=== PATIENT | female | born 2000 | race Caucasian/White ===

== ENCOUNTER 2024-07-30 14:24 | Outpatient (RCR) | payer MEDICAID, SELFPAY | END 2024-08-03 23:59 | disposition home or self-care (01) | LOC: SCTC 14:24 | PROVIDERS: PCP Nurse Practitioner Family; Referring Provider Nurse Practitioner Family; Visit Provider Nurse Practitioner Family | DX: D72.829 Elevated white blood cell count, unspecified (principal); E66.9 Obesity, unspecified; Z68.41 Body mass index [BMI] 40.0-44.9, adult | CPT/HCPCS: 99212; G0463 ==

== ENCOUNTER 2024-09-11 07:25 | Outpatient (CLI) | payer MEDICAID, SELFPAY ==
[2024-08-22 10:21] VITALS: BMI 39.8
[2024-09-10 15:43] LABS: Basophils # (Auto) 0.1 Thou/mm3 (0.0-0.2); Basophils % (Auto) 0 % (0-2.5); Eosinophils # (Auto) 0.1 Thou/mm3 (0.0-0.5); Eosinophils % (Auto) 1 % (0-10); Hematocrit 40.9 % (36.0-46.0); Hemoglobin 13.3 g/dL (12.0-16.0); Immature Granulocytes % (Auto) 1 % (0-0); Immature Granulocytes Auto 0.09 Thou/mm3 (0.00-0.00); Lymphocytes # (Auto) 3.3 Thou/mm3 (1.0-4.8); Lymphocytes % (Auto) 21 % (10-50); Mean Corpuscular HGB Conc 32.5 g/dl (31.0-37.0); Mean Corpuscular Hemoglobin 28.6 pg (25.0-35.0); Mean Corpuscular Volume 88 fL (80-100); Monocytes # (Auto) 0.8 Thou/mm3 (0.0-0.8); Monocytes % (Auto) 5 % (0-12); Neutrophils # (Auto) 11.4 Thou/mm3 (1.8-7.7); Neutrophils % (Auto) 73 % (37-80); Nucleated Red Blood Cell % 0 /100 WBC (0); Platelet Count 358 Thou/mm3 (140-440); RDW Standard Deviation 42.6 fL (36.4-46.3); Red Blood Count 4.65 Miln/mm3 (4.00-5.20); White Blood Count 15.6 Thou/mm3 (3.6-11.0)
[2024-09-10 16:08] LABS: INR 0.9 (0.9-1.3); Partial Thromboplastin Time 28.6 Seconds (22.0-36.0); Prothrombin Time 10.3 Seconds (9.0-12.2)
[2024-09-10 17:29] LABS: HCG,Qualitative Serum Negative
[2024-09-11] VITALS (8 sets, daily range): BP systolic 111–139; BP diastolic 60–90; PULSE 76–93; RESP 9–20; TEMP 36.6–36.8; O2SAT 92–95
--- NOTE | 2024-09-11 08:30 | XR_ITS ---
Examination: CT-guided percutaneous bone marrow aspiration right posterior superior iliac crest CT-guided percutaneous bone biopsy deep right posterior superior iliac crest CT pelvis without intravenous contrast Date and time of procedure: September 11, 2014 0915 hours INDICATIONS: Diagnosis leukocytosis on laboratory examination this month Informed consent provided. A timeout was completed verifying correct patient, procedure, site and positioning. Technique: Axial 3 mm sections were obtained for localization of the right posterior superior iliac crest Appropriate area is marked. The patient's site was prepped and draped in sterile fashion Maximal sterile barrier technique utilized, including hand hygiene Local anesthesia was obtained with 1% lidocaine. Low dose protocols were performed. One or more of the following dose reduction techniques were used; automated exposure control, adjustment of the mA and/or KV according to patient size, use of iterative reconstruction technique. Utilizing CT fluoroscopic guidance 14-gauge bone biopsy needle placed in the right posterior superior iliac crest 5 cc marrow aspirate obtained Bone core also obtained for cytologic analysis Patient appears in stable condition during this procedure. At completion of the procedure, the patient is in satisfactory condition. Estimated blood loss 0 cc Complete pathology report to follow. Impression: Successful CT-guided percutaneous bone marrow aspiration right posterior superior iliac crest Successful CT-guided percutaneous bone biopsy deep right posterior superior iliac crest
[2024-09-11 09:25] LABS: Flow Cytometry* See Sep Rpt
[2024-09-11] MEDS: SODIUM CHLORIDE 0.9% 100 ML 20 ML IV (09:29)
[2024-09-11] MEDS: fentaNYL CIT INJ 50 mCg/ML AMP 2ML 125 MCG IVP (09:30)
[2024-09-11] MEDS: LIDOCAINE INJ PF 1% 5 ML VIAL 15 ML INFL (09:42)
== END 2024-09-11 11:00 | disposition home or self-care (01) ==
PROVIDERS: Radiology Diagnostic Radiology; PCP Nurse Practitioner Family; Referring Provider Nurse Practitioner Family; Visit Provider Nurse Practitioner Family
DX: D70.4 Cyclic neutropenia (principal); Z01.812 Encounter for preprocedural laboratory examination
CPT/HCPCS: 38221; 36415; 77012; 84703; 85025; 85610; 85730; J3010; J3490; J7050

== ENCOUNTER 2024-10-01 15:45 | Outpatient (RCR) | payer MEDICAID, SELFPAY ==
--- NOTE | 2024-10-02 06:29 | CTCFLWUP_ITS ---
Patient: DELMER RASCON : 2000 Page 4 of 5 FOLLOW UP NOTE DATE OF SERVICE: 10/01/2024 NAME: DELMER RASCON ACCOUNT: [id number] : 2000 AGE: 24 Interval history -patient is doing well and here to discuss her HISTORY OF PRESENT ILLNESS: HISTORY: Radha Rascon is a 24-year-old Singaporean-speaking female. Patient was referred due to leukocytosis discovered during , persisted , patient delivered baby boy September 2023. Patient history of vaping nicotine and tobacco products for 3 years, quit 02/2024. Night sweats have resolved. Patient complaining of feeling tired. Patient has a past medical history of obesity, BMI 40. 08/03/2023: WBC 16.0, hemoglobin 12.7, MCV 90, platelets 252,000, ANC 12.4 09/12/2023: WBC 14.7, hemoglobin 12.9, MCV 89, platelets 213,000, ANC 11.8 10/26/2023: WBC 15.6, hemoglobin 12.4, MCV 88, ANC 12.4, platelets 317,000 01/09/2024: WBC 13.5, hemoglobin 14.1, MCV 89, ANC 9.9, platelets 330,000, TSH 1.170, iron saturation 25%, ferritin 29, B12 516, folate 15.2 01/09/2024: 01/23/2024: 01/23/2024: WBC 12.8, hemoglobin 14.5, MCV 90, ANC 9.6, platelets 330,000 04/04/2024: 04/04/2024: WBC 15.0, hemoglobin 14.4, MCV 88, ANC 11.2, platelets 343,000 06/20/2024: WBC 15.3, hemoglobin 14.1, MCV 89, ANC 11.4, platelets 322,000 OTHER MEDICAL HISTORY/CONDITIONS: Elevated?white?blood?cell?counts ?x?1?-?09/13/23 FAMILY HISTORY: Maternal Aunt - breast - 30's SOCIAL HISTORY: Occupational History - [employer] Level - Completed High School Marital Status - Single Tobacco Use Note - Vaps daily x 3 yrs, quit 02/2024 ETOH Use Note - Denies Drug Note - Denies Abuse/Neglect Note - Denies 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 MEDICATIONS: 1. No medications reported by patient - Medications Last Reconciled by Priscila Sánchez MA on 10/01/2024 ALLERGIES: No Known Drug Allergies REVIEW OF SYSTEMS: A complete 14-point review of systems was performed and is negative except as noted in interval history. PHYSICAL EXAMINATION: VITAL SIGNS: Temperature?99.2, B/P?129/91, Oxygen?Saturation?99% Weight?234?lbs PAIN: 0 - No pain ECOG Performance Status: 0 - Asymptomatic and fully active GENERAL APPEARANCE: Appears well, in no apparent distress, appropriately interactive. HEENT: Normocephalic, no temporal wasting, normal conjunctiva, no scleral icterus, normal hearing, lips without lesions, neck normal range of motion. CARDIOVASCULAR: Not assessed. PULMONARY: Normal respiratory effort, no respiratory distress or use of accessory muscles, speaking in full sentences, no tachypnea. EXTREMITIES: No pedal edema or cyanosis. SKIN: Normal skin appearance. NEUROLOGIC: Alert and oriented x4. PSHYCHIATRIC: Appropriate affect, mood normal, behavior normal, intact thought and speech. LABORATORY DATA: I have personally reviewed and interpreted each of the patient?s relevant lab tests, abnormal findings are below: Date 09/10/24 ??WHITE?BLOOD?COUNT?(Thou/mm3) 15.6?H ??RED?BLOOD?COUNT?(Miln/mm3) 4.65 ??HEMOGLOBIN?(gm/dl) 13.3 ??HEMATOCRIT?(%) 40.9 ??PLATELET?COUNT?(Thou/mm3) 358 ??NEUTROPHILS?%,?AUTO?(%) 73 ??LYMPH?%,?AUTO?(%) 21 ??NEUTROPHILS,?AUTO?(Thou/mm3) 11.4?H ASSESSMENT/PLAN: Neutrophilia Bone marrow biopsy shows normocellular bone marrow with trilineage hematopoiesis and mild neutrophilia in the peripheral blood. Karyotyping is normal and myeloproliferative neoplasm molecular study panel is negative Patient had positive GERA 2 transcript for BCR-ABL on 01/09/2024 but repeat testing was negative on 01/23/2024. As patient have negative marrow biopsy and BCR-ABL also negative on subsequent testing, it is unlikely to be CML. I will send patient to Dr. Dawn for second opinion. Patient may need a repeat bone marrow biopsy. ORDERS: Send patient for second opinion to Dr. Dawn at [facility]. Patient can follow- up with with her RETURN TO CLINIC: As needed BILLING AND COMPLIANCE: I reviewed external records from providers outside my specialty as summarized above. I spent a total of 50 minutes on this patient?s care on the day of their visit excluding time spent related to any billed procedures. This time includes time spent with the patient as well as time spent documenting in the medical record, reviewing patients records and tests, obtaining history, placing orders, communicating with other healthcare professionals, counseling the patient, family or caregiver, and/or care coordination for the diagnoses above. Electronically Signed by: {Object.Sanct_ID*[email or web address]@M}, {Object.Sanct_ID*PnP.Suffix@U} D: {Object.Sanct_Date} T: {Object.Sanct_Time} CC: Lizandro?Najma,? PCP: No Primary/family, Physician Referring: Qi Torres This document was completed utilizing speech recognition software. Grammatical errors, random word insertions, pronoun errors, and incomplete sentences are an occasional consequence of this system due to software limitations, ambient noise, and hardware issues. Any formal questions or concerns about the content, text or information contained within the body of this dictation should be directly addressed to the provider for clarification.
== END 2024-10-04 23:59 | disposition home or self-care (01) ==
LOC: SCTC 15:45
PROVIDERS: Referring Provider Nurse Practitioner Family; Visit Provider Nurse Practitioner Family
DX: D75.89 Other specified diseases of blood and blood-forming organs (principal)
CPT/HCPCS: 99212; G0463

== ENCOUNTER 2025-04-30 15:55 | Outpatient (RCR) | payer BC, MEDICAID, SELFPAY ==
--- NOTE | 2025-05-05 22:43 | CTCFLWUP_ITS ---
Patient: DELMER RASCON : 2000 Page 4 of 5 FOLLOW UP NOTE DATE OF SERVICE: 04/30/2025 NAME: DELMER RASCON ACCOUNT: [id number] : 2000 AGE: 24 INTERVAL HISTORY: Patient is a known to have BCR-ABL positive on 01/09/2024. Patient had bone marrow biopsy and subsequent PCR testing which was negative. Patient was seen by Dr. Arpita Moss and she tested her for P190 and P210 along with the genomic testing. Patient's case was presented at tumor board. I do not have reports of that. Patient was also to get ultrasound to evaluate for hepatosplenomegaly. I do not have the results of the same from [facility]. Patient have not followed up with her malignant hematology appointment at [facility]. Plan is to get reports from [facility] to see if patient need any further treatment plan HISTORY OF PRESENT ILLNESS: HISTORY: Radha Rascon is a 24-year-old Georgian-speaking female. Patient was referred due to leukocytosis discovered during , persisted , patient delivered baby boy September 2023. Patient history of vaping nicotine and tobacco products for 3 years, quit 02/2024. Night sweats have resolved. Patient complaining of feeling tired. Patient has a past medical history of obesity, BMI 40. 08/03/2023: WBC 16.0, hemoglobin 12.7, MCV 90, platelets 252,000, ANC 12.4 09/12/2023: WBC 14.7, hemoglobin 12.9, MCV 89, platelets 213,000, ANC 11.8 10/26/2023: WBC 15.6, hemoglobin 12.4, MCV 88, ANC 12.4, platelets 317,000 01/09/2024: WBC 13.5, hemoglobin 14.1, MCV 89, ANC 9.9, platelets 330,000, TSH 1.170, iron saturation 25%, ferritin 29, B12 516, folate 15.2 01/09/2024: 01/23/2024: 01/23/2024: WBC 12.8, hemoglobin 14.5, MCV 90, ANC 9.6, platelets 330,000 04/04/2024: 04/04/2024: WBC 15.0, hemoglobin 14.4, MCV 88, ANC 11.2, platelets 343,000 06/20/2024: WBC 15.3, hemoglobin 14.1, MCV 89, ANC 11.4, platelets 322,000 OTHER MEDICAL HISTORY/CONDITIONS: Elevated?white?blood?cell?counts ?x?1?-?09/13/23 FAMILY HISTORY: Maternal Aunt - breast - 30's SOCIAL HISTORY: Occupational History - [employer] at [employer] Education Level - Completed High School Marital Status - Single Tobacco Use Note - Vaps daily x 3 yrs, quit 02/2024 ETOH Use Note - Denies Drug Note - Denies Abuse/Neglect Note - Denies 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 MEDICATIONS: 1. No medications reported by patient - Medications Last Reconciled by Dee Dee Pate MD on 04/30/2025 ALLERGIES: No Known Drug Allergies REVIEW OF SYSTEMS: A complete 14-point review of systems was performed and is negative except as noted in interval history. PHYSICAL EXAMINATION: VITAL SIGNS: Temperature?98.9, B/P?125/86, Oxygen?Saturation?98% Weight?221?lbs PAIN: 0 - No pain GENERAL APPEARANCE: Appears well, in no apparent distress, appropriately interactive. HEENT: Normocephalic, no temporal wasting, normal conjunctiva, no scleral icterus, normal hearing, lips without lesions, neck normal range of motion. CARDIOVASCULAR: Not assessed. PULMONARY: Normal respiratory effort, no respiratory distress or use of accessory muscles, speaking in full sentences, no tachypnea. EXTREMITIES: No pedal edema or cyanosis. SKIN: Normal skin appearance. NEUROLOGIC: Alert and oriented x4. PSHYCHIATRIC: Appropriate affect, mood normal, behavior normal, intact thought and speech. LABORATORY DATA: I have personally reviewed and interpreted each of the patient?s relevant lab tests, abnormal findings are below: Date 09/10/24 ??WHITE?BLOOD?COUNT?(Thou/mm3) 15.6?H ??RED?BLOOD?COUNT?(Miln/mm3) 4.65 ??HEMOGLOBIN?(gm/dl) 13.3 ??HEMATOCRIT?(%) 40.9 ??PLATELET?COUNT?(Thou/mm3) 358 ??NEUTROPHILS?%,?AUTO?(%) 73 ??LYMPH?%,?AUTO?(%) 21 ??NEUTROPHILS,?AUTO?(Thou/mm3) 11.4?H ASSESSMENT/PLAN: Neutrophilia Bone marrow biopsy shows normocellular bone marrow with trilineage hematopoiesis and mild neutrophilia in the peripheral blood. Karyotyping is normal and myeloproliferative neoplasm molecular study panel is negative Patient had positive GERA 2 transcript for BCR-ABL on 01/09/2024 but repeat testing was negative on 01/23/2024. Please get reports from [facility] ORDERS: Order # Description [id number] RETURN TO CLINIC: I reviewed the diagnosis, prognosis, and recommended treatment/procedure options with the patient (and/or their legal cash application representative), including the potential benefits, risks, side effects and alternative therapies. We also discussed the option of no treatment and the possibility of clinical trial participation, if applicable. All questions were addressed, and they demonstrated understanding. They provided informed consent to proceed with the proposed plan of care. BILLING AND COMPLIANCE: I reviewed external records from providers outside my specialty as summarized above. I spent a total of 50 minutes on this patient?s care on the day of their visit excluding time spent related to any billed procedures. This time includes time spent with the patient as well as time spent documenting in the medical record, reviewing patients records and tests, obtaining history, placing orders, communicating with other healthcare professionals, counseling the patient, family or caregiver, and/or care coordination for the diagnoses above. Electronically Signed by: Ilir Cancino MD T: 10:41 PM CC: Lizandro?Najma? PCP: No Primary/family, Physician Referring: Ilir Cancino This document was completed utilizing speech recognition software. Grammatical errors, random word insertions, pronoun errors, and incomplete sentences are an occasional consequence of this system due to software limitations, ambient noise, and hardware issues. Any formal questions or concerns about the content, text or information contained within the body of this dictation should be directly addressed to the provider for clarification.
== END 2025-05-04 23:59 | disposition home or self-care (01) ==
LOC: SCTC 15:55
PROVIDERS: Referring Provider Internal Medicine Hematology & Oncology; Visit Provider Internal Medicine Hematology & Oncology
DX: D72.828 Other elevated white blood cell count (principal)
CPT/HCPCS: 99212; G0463

== ENCOUNTER → 2025-06-09 | Outpatient (CLI) | payer BC, SELFPAY ==
--- NOTE | 2025-06-09 15:30 | XR_ITS ---
Examination: Ultrasound spleen TECHNIQUE: Grayscale sonographic images spleen Date and time: June 09, 2025, 1535 hours INDICATIONS: Leukocytosis, clinical diagnosis splenomegaly FINDINGS: Normal spleen size 10.5 cm no focal splenic defects IMPRESSION: Normal study
== END | disposition home or self-care (01) ==
PROVIDERS: Referring Provider Internal Medicine Hematology & Oncology; Visit Provider Internal Medicine Hematology & Oncology
DX: D72.829 Elevated white blood cell count, unspecified (principal)
CPT/HCPCS: 76705

== ENCOUNTER 2025-06-30 15:24 | Outpatient (RCR) | payer BC, SELFPAY ==
--- NOTE | 2025-07-07 13:19 | CTCFLWUP_ITS ---
Patient: DELMER RASCON : 2000 Page 4 of 5 FOLLOW UP NOTE DATE OF SERVICE: 06/30/2025 NAME: DELMER RASCON ACCOUNT: [id number] : 2000 AGE: 24 INTERVAL HISTORY: Patient is a known to have BCR-ABL positive on 01/09/2024. Patient had bone marrow biopsy and subsequent PCR testing which was negative. Patient was seen by Dr. Arpita Moss and she tested her for P190 and P210 along with the genomic testing. Patient's case was presented at tumor board. I do not have reports of that. Patient do not have hepatosplenomegaly. ONCOLOGY HISTORY: DIAGNOSIS: No cancer diagnosis date DATE OF DIAGNOSIS: 07/24/2023 STAGE/TNM: Not applicable TREATMENT HISTORY: Care?Plan Start?Date Cycle Day Intent HISTORY OF PRESENT ILLNESS: HISTORY: Radha Rascon is a 24-year-old Guinean-speaking female. Patient was referred due to leukocytosis discovered during , persisted , patient delivered baby boy September 2023. Patient history of vaping nicotine and tobacco products for 3 years, quit 02/2024. Night sweats have resolved. Patient complaining of feeling tired. Patient has a past medical history of obesity, BMI 40. 08/03/2023: WBC 16.0, hemoglobin 12.7, MCV 90, platelets 252,000, ANC 12.4 09/12/2023: WBC 14.7, hemoglobin 12.9, MCV 89, platelets 213,000, ANC 11.8 10/26/2023: WBC 15.6, hemoglobin 12.4, MCV 88, ANC 12.4, platelets 317,000 01/09/2024: WBC 13.5, hemoglobin 14.1, MCV 89, ANC 9.9, platelets 330,000, TSH 1.170, iron saturation 25%, ferritin 29, B12 516, folate 15.2 01/09/2024: 01/23/2024: 01/23/2024: WBC 12.8, hemoglobin 14.5, MCV 90, ANC 9.6, platelets 330,000 04/04/2024: 04/04/2024: WBC 15.0, hemoglobin 14.4, MCV 88, ANC 11.2, platelets 343,000 06/20/2024: WBC 15.3, hemoglobin 14.1, MCV 89, ANC 11.4, platelets 322,000 OTHER MEDICAL HISTORY/CONDITIONS: Elevated?white?blood?cell?counts ?x?1?-?09/13/23 FAMILY HISTORY: Maternal Aunt - breast - 30's SOCIAL HISTORY: Occupational History - [employer] at the [employer] Education Level - Completed High School Marital Status - Single Tobacco Use Note - Vaps daily x 3 yrs, quit 02/2024 ETOH Use Note - Denies Drug Note - Denies Abuse/Neglect Note - Denies 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 MEDICATIONS: 1. No medications reported by patient - Medications Last Reconciled by Dee Dee Garcia MA on 06/30/2025 ALLERGIES: No Known Drug Allergies REVIEW OF SYSTEMS: A complete 14-point review of systems was performed and is negative except as noted in interval history. PHYSICAL EXAMINATION: VITAL SIGNS: Temperature?99.9, B/P?124/80, Oxygen?Saturation?99% Weight?232?lbs PAIN: 0 - No pain ECOG Performance Status: 0 - Asymptomatic and fully active GENERAL APPEARANCE: Appears well, in no apparent distress, appropriately interactive. HEENT: Normocephalic, no temporal wasting, normal conjunctiva, no scleral icterus, normal hearing, lips without lesions, neck normal range of motion. CARDIOVASCULAR: Not assessed. PULMONARY: Normal respiratory effort, no respiratory distress or use of accessory muscles, speaking in full sentences, no tachypnea. EXTREMITIES: No pedal edema or cyanosis. SKIN: Normal skin appearance. NEUROLOGIC: Alert and oriented x4. PSHYCHIATRIC: Appropriate affect, mood normal, behavior normal, intact thought and speech. LABORATORY DATA: I have personally reviewed and interpreted each of the patient?s relevant lab tests, abnormal findings are below: Date 09/10/24 ??WHITE?BLOOD?COUNT?(Thou/mm3) 15.6?H ??RED?BLOOD?COUNT?(Miln/mm3) 4.65 ??HEMOGLOBIN?(gm/dl) 13.3 ??HEMATOCRIT?(%) 40.9 ??PLATELET?COUNT?(Thou/mm3) 358 ??NEUTROPHILS?%,?AUTO?(%) 73 ??LYMPH?%,?AUTO?(%) 21 ??NEUTROPHILS,?AUTO?(Thou/mm3) 11.4?H ASSESSMENT/PLAN: Neutrophilia Bone marrow biopsy shows normocellular bone marrow with trilineage hematopoiesis and mild neutrophilia in the peripheral blood. Karyotyping is normal and myeloproliferative neoplasm molecular study panel is negative Patient had positive GERA 2 transcript for BCR-ABL on 01/09/2024 but repeat testing was negative on 01/23/2024. BCR-ABL testing and quantification negative at [facility] Bone marrow biopsy was also negative I will continue to monitor Ms. Rascon as her labs have improved Patient cannot follow at [facility] secondary to insurance issue will refer her to another tertiary center ORDERS: Order # Description [id number] Comprehensive Metabolic Panel - 12 + CBC with Auto Diff + Uric Acid, Serum [id number] Lactate Dehydrogenase (LDH) [id number] BCR/ABL1 transcrit level [id number] Follow Up 3 Months RETURN TO CLINIC: I reviewed the diagnosis, prognosis, and recommended treatment/procedure options with the patient (and/or their legal membership sales representative), including the potential benefits, risks, side effects and alternative therapies. We also discussed the option of no treatment and the possibility of clinical trial participation, if applicable. All questions were addressed, and they demonstrated understanding. They provided informed consent to proceed with the proposed plan of care. BILLING AND COMPLIANCE: I reviewed external records from providers outside my specialty as summarized above. I spent a total of 50 minutes on this patient?s care on the day of their visit excluding time spent related to any billed procedures. This time includes time spent with the patient as well as time spent documenting in the medical record, reviewing patients records and tests, obtaining history, placing orders, communicating with other healthcare professionals, counseling the patient, family or caregiver, and/or care coordination for the diagnoses above. Electronically Signed by: Ilir Cancino MD T: 1:17 PM CC: Lizandro?Najma? PCP: No Primary/family, Physician Referring: Ilir Cancino This document was completed utilizing speech recognition software. Grammatical errors, random word insertions, pronoun errors, and incomplete sentences are an occasional consequence of this system due to software limitations, ambient noise, and hardware issues. Any formal questions or concerns about the content, text or information contained within the body of this dictation should be directly addressed to the provider for clarification.
== END 2025-07-04 23:59 | disposition home or self-care (01) ==
LOC: SCTC 15:24
PROVIDERS: Referring Provider Internal Medicine Hematology & Oncology; Visit Provider Internal Medicine Hematology & Oncology
DX: D72.828 Other elevated white blood cell count (principal)
CPT/HCPCS: 99212; G0463